=== PATIENT | female | born 1960 | race African-American/Black ===

== ENCOUNTER 2017-05-14 10:30 | Emergency (ER) | payer OTHER ==
[~2017-05-14] VITALS: Ht 188 cm; Wt 127.0 kg
--- NOTE | ~2017-05-14 | EKG ---
[place] [address] [facility] [place] [address] ELECTROCARDIOGRAM REPORT Name: MIKE SIMONSTHIA Room #: REG Ja#: [id number] Admission: 05/14/17 Attend Phys: Discharge: Date of : 64 Report #: [id number] THIS REPORT FOR: //name// [facility] ED Test Date: 2017-05-14 Test Time: 10:44:28 Pat Name: BRYAN SIMONS Department: Room: Gender: F Road Consultant: Susan PEMBERTON : 1960 Requested By: Mishel Cedillo Order Number: [id number] MD: Capo Calzada Measurements Intervals [place] Rate: 54 P: 17 NH: 196 QRS: -8 QRSD: 90 T: 11 QT: 437 QTc: 415 Interpretive Statements Sinus rhythm Left ventricular hypertrophy Borderline T abnormalities, anterior leads No previous ECG available for comparison Electronically Signed On 05-14-2017 12:17:25 REAL ESTATE INTERN by Capo Calzada [email or web address] <ELECTRONICALLY SIGNED> By: Capo Calzada MD 05/14/17 1217 1044 1044 Capo Calzada MD /RODGER
[2017-05-14] MEDS ORDERED: MOBIC15 MG PO (10:56)
[2017-05-14] MEDS ORDERED: VENTOLIN HFA 1818 GM INH (10:56)
[2017-05-14 11:45] LABS: ABSOLUTE NEUTROPHILS 4.3 thou/uL (1.4-8.2); BASOPHILS 0.6 % (0.0-2.0); HEMOGLOBIN 12.9 gm/dL (12.0-15.0); MCH 26.9 pg (26.0-34.0); MCV 81.4 fL (80.0-100.0); MONOCYTES 5.1 % (1.0-8.0); PLATELET COUNT 269 thou/uL (150-400); POLYS 58.3 % (36.0-66.0); RDW 14.2 % (10.5-14.5); WBC 7.4 thou/uL (4.0-11.0)
[2017-05-14 11:53] LABS: ANION GAP 9 mmol/L (7-16); BUN 12 mg/dL (7-18); CHLORIDE 106 mmol/L (98-107); CO2 25 mmol/L (21-32); CREATININE 0.8 mg/dL (0.6-1.0); GLUCOSE 85 mg/dL (74-106); POTASSIUM 4.5 mmol/L (3.5-5.1); SODIUM 140 mmol/L (136-145)
[2017-05-14 12:03] LABS: TROPONIN-I < 0.04 ng/mL (<0.06)
== END 2017-05-14 12:43 | disposition home or self-care (01) ==
LOC: ER 10:30
PROVIDERS: Emergency Medicine
DX: R55 Syncope and collapse (principal)